=== PATIENT | male | born 1970 | race Caucasian/White ===

== ENCOUNTER 2019-01-24 13:54 | Emergency (ER) | payer OTHER ==
[~2019-01-24] VITALS: Ht 182.9 cm; Wt 90.3 kg
[2019-01-24] MEDS ORDERED: XANAX1 MG PO (14:05)
[2019-01-24] MEDS ORDERED: SEROQUEL25 MG PO (14:06)
[2019-01-24] MEDS ORDERED: TRAZODONE HCL50 MG (14:07)
[2019-01-24] MEDS ORDERED: WELLBUTRIN SR100 MG (14:08)
== END 2019-01-24 18:21 | disposition home or self-care (01) ==
LOC: ER 13:54
DX: B34.9 Viral infection, unspecified (principal); R53.81 Other malaise